=== PATIENT | female | born 1955 | race Caucasian/White ===

== ENCOUNTER → 2017-01-16 | Outpatient (CLI) | payer BC, OTHER ==
[~2017-01-16] VITALS: Ht 160 cm; Wt 98.7 kg
[~2017-01-16] MED LIST: ABILIFY 5 MG TAB5 MG PO; ACCUNEB SO1.25 MG/1 INH; ALLOPURINOL 30300 M2 PO; CALCIUM CITRAT1 EA14 PO; CALCIUM CITRAT100 GM; CYMBALTA60 MG PO; DOXYCYCLINE 10100 MG PO; KLOR-CON 1010 MEQ PO; LASIX 40 MG TAB40 M2 PO; LEVOTHYROXINE0.05 MG PO; METFORMIN HCL500 MG PO; METHADONE HCL 110 M1 PO; METHADONE HCL5 MG PO; MOBIC15 MG PO; MOVANTIK12.5 MG PO; MOVANTIK25 MG PO; NEURONTIN 300300 M1 PO; OXYBUTYNIN 5 MG5 M2 PO; PERCOCET 7.5-31 EACH PO; PREDNISONE 10 M10 MG PO; PRILOSEC20 MG PO; PRINIVIL20 MG PO; ROXICODONE15 M1 PO; SENOKOT-S1 TA1 PO; TOPROL XL50 MG PO; TRAMADOL 50 MG50 MG PO; VITAMIN D3400 UNIT PO; ZYRTEC10 MG PO
--- NOTE | ~2017-01-16 | HPC ---
[facility] [place] [address] PAIN MANAGEMENT CONSULTATION Name: PEEWEE MAGALLON Room #: REG [facility]#: [id number] Admission: 01/16/17 Attend Phys: Andrew Prado DO Discharge: Date of : 56 Report #: [id number] THIS REPORT FOR: //name// CC: Madhu Prado The patient is a 61-year-old female seen about a year and a half ago in last visit being August of 2015. The patient was being treated for chronic pain syndrome secondary to DJD, bilateral knees. In the interval since I saw her, she progressed to have left total knee arthroplasty, 09/13/2015 and had the contralateral, i.e., right total knee arthroplasty done this past September, 10/02/2016. The patient worked through physical therapy and was doing reasonably well until about 6 weeks ago when she awoke with left "sciatic" pain. The patient notes again no antecedent trauma and overuse, though she does note that she does have a bit of an altered gait, status post both total knee arthroplasties and thinks that this may be a contributing factor. She has pain in the low back, left gluteal area radiating down the posterior aspect of the leg and into the foot. She continued doing some of the physical therapy from . She has tried memory care program resident including massage manipulation and acupuncture. She has been on ongoing nonsteroidal anti-inflammatory medication (Celebrex 200 mg) from her general science teacher physician, all without efficacy. She does take gabapentin 300 mg b.i.d. for longstanding diabetic peripheral neuropathy (she did lose 70 pounds the last year, sugar is under better control, hemoglobin A1c is 5.2). Her general science teacher physician gave her little hydrocodone for her current sciatic symptoms. Physical exam today does show 61-year-old female. BMI remains elevated at 38.6. Again, she is down from BMI of 41.5 when I saw her year and a half ago. Blood pressure is 132/74, pulse 89, respirations 16. Cranial nerves 2-12 are grossly intact. Pupils are equal and reactive to light and accommodation. Extraocular muscles are intact. She is alert and oriented to person, place and time, judged to be a reasonable historian. Rises from chair using armrest, does have a moderately antalgic gait, has a little bit of everted left foot with gait. Lumbar flexion is actually good about 90 degrees. Some diffuse tenderness across the low back, primarily at the L4-L5 area. Left plantar flexion and lower extremity extension is diminished about 3/5 versus perhaps 4/5 of all other muscle groups tested including all the right leg. Patellar reflex, I cannot elicit on the right side. Again she is status post bilateral total knee arthroplasties and does have a little more scar on this right side than left side. Left patellar reflex is elicitable, perhaps 1 to 2/4. Straight leg raise is grossly positive at 30 degrees on the left side. Skin integument is otherwise intact. [address] [address] PAIN MANAGEMENT CONSULTATION Name: PEEWEE MAGALLON Room #: REG [facility] Cat#: [id number] Admission: 01/16/17 Attend Phys: Andrew Prado DO Discharge: Date of : 57 Report #: [id number] ASSESSMENT: Symptomatic lumbar radiculopathy, left L4-L5 distribution in a patient prior treated for degenerative joint disease, bilateral knees, now status post total knee arthroplasties, left and right. RECOMMENDATION: 1. Continue Celebrex and p.r.n. hydrocodone from general science teacher physician. 2. Epidural injection under fluoroscopy today at L4-L5, left to midline. 3. Follow up in 3 weeks for reevaluation. If she does not get adequate relief with this injection, we will recommend an MRI at that time. Thank you for allowing me to participate in the patient's care. She is seen for approximately 25 minutes from 11:15-11:40, taken to the procedure room at 11:40 for epidural injection under fluoroscopy. PROCEDURE NOTE: Lumbar epidural injection under fluoroscopy. PROCEDURE: Lumbar epidural steroid injection. PROCEDURE NOTE: After both written and informed consent to include risk of spinal cord damage, increased pain, weakness and dural puncture, the patient was taken to the fluoroscopy suite, placed in the prone position. After sterile prep and drape, a skin wheal with lidocaine was raised. A 22-gauge epidural Tuohy needle was inserted in the midline at L4-L5 with good loss to resistance. Negative aspiration for cerebrospinal fluid or blood was noted. Then 1 mL of Omnipaque under biplanar fluoroscopy showed good spread within the epidural space. This was followed with injectate of 60 mg of triamcinolone plus 1 mL of 1.5% preservative-free Xylocaine, 0.5 mL Xylocaine was then injected to flush the needle; it was removed. The patient was monitored for an appropriate period of time and discharged in good and stable condition. <ELECTRONICALLY SIGNED> By: Andrew Prado DO 01/19/17 0755 [id number] 1710 Andrew Prado DO /nt
[2017-01-16 11:05] VITALS: BP 132/74
== END | disposition home or self-care (01) ==
LOC: PAIN 06:49
DX: M54.16 Radiculopathy, lumbar region (principal); G89.4 Chronic pain syndrome; E11.42 Type 2 diabetes mellitus with diabetic polyneuropathy; Z96.653 Presence of artificial knee joint, bilateral; Z88.0 Allergy status to penicillin; Z88.6 Allergy status to analgesic agent; Z91.048 Other nonmedicinal substance allergy status; Z79.899 Other long term (current) drug therapy

== ENCOUNTER → 2017-02-06 | Outpatient (CLI) | payer BC, OTHER ==
[~2017-02-06] VITALS: Ht 160 cm; Wt 98.4 kg
[~2017-02-06] MED LIST changes: +MS CONTIN15 MG PO; +NORCO 7.5-3251 EACH PO; +OXYCODONE HCL E10 MG PO
--- NOTE | ~2017-02-06 | HPC ---
[facility] [place] [address] PAIN MANAGEMENT CONSULTATION Name: PEEWEE MAGALLON [facility] [id number] Admission: 02/06/17 Attend Phys: Andrew Prado DO Discharge: Date of : 57 Report #: [id number] THIS REPORT FOR: //name// CC: Madhu Prado HISTORY OF PRESENT ILLNESS: The patient is a 61-year-old female prior seen in the pain clinic on 01/16/2017. She has chronic DJD pain status post bilateral total knee arthroplasties, requiring high risk complex medication management. The patient has continued on Celebrex and hydrocodone. On 01/16/2017 visit, we did an epidural injection. The patient notes she had good incremental relief, noting 50% relief and ongoing. She does note, however, pain continues to be problematic, 2/6 at present, but 6/10 with activity. She has been using hydrocodone 7.5/325 two tablets b.i.d. from a general store manager physician who has told that he would like to stop writing for that medication now that she is being seen in the pain clinic, which is certainly appropriate. PHYSICAL EXAMINATION: Shows a 61-year-old female, BMI is 38.4 kilograms per meter squared. Vital signs are stable as noted in the EMR. Rises from chair using armrest. Modestly antalgic gait, diffuse tenderness across the low back. Passive rotation of the hips is unremarkable. Positive straight leg raise on the left. ASSESSMENT AND RECOMMENDATION: 1. Chronic pain syndrome requiring high risk complex medication management. Long discussion with the patient today about therapeutic options. Taking high dose short acting opiates is generally contraindicated for long-term use. Taking two hydrocodone 7.5 (15 mg of hydrocodone) tends to release the reward substance dopamine in the brain causing some unconscious "craving" and these higher doses do tend to produce more rapid opiate tolerance. We discussed this at length today and decided to rotate to an equally analgesic yet slow release longer acting agent, MS Contin 15 mg b.i.d. We did enter in to an opiate consent to treat contract with the patient today. She understands her rights and responsibilities under this contract. We will check a random drug screen at next visit (buccal swab). 2. Acute exacerbation of lumbar radiculopathy, 50% relief following 1 epidural injection. Recommendation will be repeat epidural injection under fluoroscopy today. PROCEDURE: Lumbar epidural injection under fluoroscopy. PROCEDURE NOTE: After both written and informed consent to include risk of spinal cord damage, increased pain, weakness and dural puncture, the patient was taken to the fluoroscopy suite, placed in the prone position. After sterile prep and drape, a skin wheal with lidocaine was raised. A 22-gauge epidural [address] [address] PAIN MANAGEMENT CONSULTATION Name: PEEWEE MAGALLON Room #: REG [facility] Cat#: [id number] Admission: 02/06/17 Attend Phys: Andrew Prado DO Discharge: Date of : 57 Report #: [id number] Tuohy needle was inserted in the midline at L4-L5 with good loss to resistance. Negative aspiration for cerebrospinal fluid or blood was noted. Then 1 mL of Omnipaque under biplanar fluoroscopy showed good spread within the epidural space. This was followed with 80 mg of triamcinolone plus 1 mL of 1.5% preservative-free Xylocaine, 0.5 mL Xylocaine was then injected to flush the needle; it was removed. The patient was monitored for an appropriate period of time and discharged in good and stable condition. <ELECTRONICALLY SIGNED> By: Andrew Prado DO 02/09/17 1014 [id number] 1208 Andrew Prado DO /nt
[2017-02-06 09:03] VITALS: BP 155/79
== END | disposition home or self-care (01) ==
LOC: PAIN 07:05
DX: M54.16 Radiculopathy, lumbar region (principal); G89.4 Chronic pain syndrome; M17.0 Bilateral primary osteoarthritis of knee; Z96.653 Presence of artificial knee joint, bilateral; Z88.0 Allergy status to penicillin; Z79.891 Long term (current) use of opiate analgesic; Z88.6 Allergy status to analgesic agent; Z79.899 Other long term (current) drug therapy; Z98.890 Other specified postprocedural states

== ENCOUNTER → 2017-04-10 | Outpatient (CLI) | payer BC, OTHER ==
[~2017-04-10] VITALS: Ht 160 cm; Wt 102.1 kg
[~2017-04-10] MED LIST changes: +AMITRIPTYLINE H10 M3 PO; +WELLBUTRIN SR150 MG PO
--- NOTE | ~2017-04-10 | HPC ---
[facility] [place] [address] PAIN MANAGEMENT CONSULTATION Name: PEEWEE MAGALLON Room #: REG [facility] Cat#: [id number] Admission: 04/10/17 Attend Phys: Andrew Prado DO Discharge: Date of : 57 Report #: [id number] THIS REPORT FOR: //name// CC: Madhu Prado HISTORY OF PRESENT ILLNESS: The patient is a 61-year-old female being treated for chronic pain syndrome, status post bilateral total knee arthroplasties, lumbar radiculopathy, requiring high risk complex medication management. Last seen in the pain clinic on 02/04/2017. We did a lumbar epidural injection at L4-L5 (#2 in a series, #1 was on 01/16/2017). The patient noted excellent improvement of symptoms and did not make a followup appointment. She had been using hydrocodone 7.5/325, which she had received from her orthopedist status post the left total knee arthroplasty. Given that, she was using 2 tablets occasionally at one time. I suggested she trial a long-acting opiate (MS Contin 15 mg b.i.d.). She trialed this, but it had caused some pruritus and she discontinued. She has been doing reasonably well, taking hydrocodone 7.5/325 a single tablet 3-4 times a week. Returns to the pain clinic today noting pain is beginning to recur but when she made the appointment, she was having radicular symptoms which have somewhat abated. PHYSICAL EXAMINATION: GENERAL: Today shows a pleasant 61-year-old female, BMI is about 29 kilograms per meter squared. Alert and oriented to person, place and time, judged to be a reasonable historian. VITAL SIGNS: Stable. MUSCULOSKELETAL: Rises from the chair using the armrest. Gait is mildly antalgic. Does have some diffuse tenderness in the low back, though lower extremity strength at this time is symmetric. Straight leg raise is negative. Does have some tenderness in the knees with full range of motion. ASSESSMENT: Chronic pain syndrome, status post bilateral total knee arthroplasties, lumbar radiculopathy by history requiring complex medication management. RECOMMENDATIONS: Long discussion with the patient today about therapeutic options. We have elected to enter into an opiate consent to treat contract with the patient. We talked about risks for opiate habituation, tolerance, sedation and constipation. The patient understands she must safeguard the medications, use them appropriately, not share medications and use 1 pharmacy. I have elected to write for hydrocodone 7.5/325 one tablet up to b.i.d., limit 60 tablets. We will have the patient follow up if she has recurrence of radicular symptoms [address] [address] PAIN MANAGEMENT CONSULTATION Name: NAUNPEEWEE A Room #: REG [facility] Cat#: [id number] Admission: 04/10/17 Attend Phys: Andrew Prado DO Discharge: Date of : 57 Report #: [id number] for consideration for repeat epidural injection; otherwise, we will have her call back and make an appointment when she has about 10 tablets left. We will see how long 60 tablets last, given the patient's reported history of taking 3 or 4 weeks, this should be several months. We did her prolonged visit today, 25 minutes was spent with the patient reviewing therapeutic options, clinical indications, risks and benefits of opiate analgesics and reviewing the opiate consent to treat contract. We will get a buccal drug swab at next visit. The [place] physician monitoring program was accessed. There are no prescriptions generated from the patient. She fills her prescriptions in [place]. Discharged in good stable condition after a 25+ minute visit. <ELECTRONICALLY SIGNED> By: Andrew Prado DO 04/13/17 0759 [id number] 2339 Andrew Prado DO /nt
[2017-04-10 10:52] VITALS: BP 141/62
== END ==
LOC: PAIN 06:49
DX: M54.16 Radiculopathy, lumbar region (principal); Z96.653 Presence of artificial knee joint, bilateral; Z79.899 Other long term (current) drug therapy

== ENCOUNTER → 2017-05-25 | Outpatient (CLI) | payer BC, OTHER ==
[~2017-05-25] VITALS: Ht 160 cm; Wt 104.7 kg
[~2017-05-25] MED LIST changes: +ASPIR 8181 MG PO
--- NOTE | ~2017-05-25 | HPC ---
[facility] [place] [address] PAIN MANAGEMENT CONSULTATION Name: PEEWEE MAGALLON Room #: REG [facility]#: [id number] Admission: 05/25/17 Attend Phys: Andrew Prado DO Discharge: Date of : 57 Report #: [id number] THIS REPORT FOR: //name// CC: Madhu Prado The patient is a 61-year-old female prior seen in the pain clinic on 04/10/2017, being treated for chronic pain syndrome, status post bilateral total knee arthroplasties requiring high risk complex medication management and component of lumbar radiculopathy. Last visit, we entered into an opiate consent to treat contract and elected to continue the patient on hydrocodone 7.5/325 b.i.d. The patient returns to the pain clinic today noting in general medications are providing sufficient analgesia to participate in activities of daily living, rates the pain at 2-3 on VAS, primarily pain in low back, left hip and groin, has had good relief with epidural injections in the past. Notes ongoing pain in her right shoulder. She states she has had x-rays there that have showed "DJD." She is an RN and works weekends. She states that she does not take hydrocodone over the weekend. Her last hydrocodone tablet was on . She again takes one tablet up to twice a day and has not had a tablet for 72 hours. She is being seen on Thursday morning, she just finished her work shift. States she has about 30 hydrocodone tablets left. She clearly is not taking them aggressively. She does not require renewal of her current medication at this time. Ongoing pain in the right shoulder, which is problematic, but greatest concern is lumbar radicular symptoms. PHYSICAL EXAMINATION: Shows 61-year-old female, has pain with the right shoulder, both active and passive rotation with crepitance over the shoulder, component of DJD. Rises from chair using armrest, moderately antalgic gait, positive straight leg raise at 30 degrees on the left with decreased left hip flexion and extension strength. ASSESSMENT: 1. Symptomatic lumbar radiculopathy with clinical exam and history. 2. Chronic pain syndrome requiring high risk complex medication management, DJD, status post bilateral total knee arthroplasties and ongoing right shoulder pain and again high risk complex medication opiate medication management. RECOMMENDATION: 1. We will check a buccal random check today. May be negative for hydrocodone, but may show hydrocodone metabolites. No other opiate should be present. 2. Epidural injection under fluoroscopy today at L4-L5. 3. Follow up in 2 weeks for reevaluation and will likely need medication renewal at that time. ASSESSMENT: Symptomatic lumbar radiculopathy. PROCEDURE: Lumbar epidural injection under fluoroscopy [address] [address] PAIN MANAGEMENT CONSULTATION Name: NAUNPEEWEE Ben Room #: REG [facility] Cat#: [id number] Admission: 05/25/17 Attend Phys: Andrew Prado DO Discharge: Date of : 57 Report #: [id number] PROCEDURE NOTE: After both written and informed consent to include risk of spinal cord damage, increased pain, weakness and dural puncture, the patient was taken to the fluoroscopy suite, placed in the prone position. After sterile prep and drape, a skin wheal with lidocaine was raised. A 22-gauge epidural Tuohy needle was inserted in the midline at L4-L5 with good loss to resistance. Negative aspiration for cerebrospinal fluid or blood was noted. Then 1 mL of Omnipaque under biplanar fluoroscopy showed good spread within the epidural space. This was followed with 60 mg of triamcinolone plus 1 mL of 1.5% preservative-free Xylocaine, 0.5 mL Xylocaine was then injected to flush the needle; it was removed. The patient was monitored for an appropriate period of time and discharged in good and stable condition. <ELECTRONICALLY SIGNED> By: Andrew Prado DO 05/27/17 0816 1604 0215 Andrew Prado DO /nt
[2017-05-25 14:00] VITALS: BP 121/66
== END | disposition home or self-care (01) ==
LOC: PAIN 07:06
DX: M54.16 Radiculopathy, lumbar region (principal); G89.4 Chronic pain syndrome; M17.0 Bilateral primary osteoarthritis of knee; M25.511 Pain in right shoulder; Z79.891 Long term (current) use of opiate analgesic; Z96.653 Presence of artificial knee joint, bilateral; Z88.0 Allergy status to penicillin; Z88.8 Allergy status to other drugs, medicaments and biological substances; Z79.82 Long term (current) use of aspirin; Z79.899 Other long term (current) drug therapy; Z98.890 Other specified postprocedural states